=== PATIENT | male | born 1980 | race Caucasian/White ===

== ENCOUNTER 2022-07-12 10:43 | Emergency (ER) | payer MEDICAID, SELFPAY ==
[2022-07-12 10:45] VITALS: BP 150/86; PULSE 99; RESP 18; TEMP 36.7; O2SAT 97; BMI 38.1
--- NOTE | 2022-07-12 11:38 | PC.NURSE ---
PT INITIALLY SENT TO [facility] FOR TESTICULAR US EXAM. UPON ARRIVAL THERE, HE TOLD US TECH THAT HE IN FACT WAS NOT HAVING ANY TESTICULAR PAIN AND THAT HE A RASH ON THE SHAFT OF HIS PENIS. US CALLED THE PROVIDER AND IT WAS DECIDED TO CANCEL THE US.
--- NOTE | 2022-07-12 12:24 | ED.MALEGU ---
HPI - Male Genitourinary General Chief complaint: Urogenital-Male Stated complaint: groin pain Time Seen by Provider: 07/12/22 12:23 Source: patient Mode of arrival: ambulatory Limitations: no limitations History of Present Illness HPI Narrative: Patient is a 41 year old assigned male at with no reported medical history presenting to the emergency department today with penile redness, white discharge, and pain. Patient states that he noticed when he rolls his foreskin on his penis back, there is white discharge, redness, and pain. Patient denies any dizziness, lightheadedness, abdominal pain, nausea, vomiting, fever, chills, blurry vision, double vision, loss of vision, chest pain, difficulty breathing, shortness of breath, back pain, night sweats, pain with urination, increased urinary frequency, increased urinary urgency, blood in his urine or stool, syncope or a near syncopal episode, recent trauma or falls, bowel incontinence, bladder incontinence, bowel retention, bladder retention, or any other complaints at this time. Onset (ago): day(s) (5) Duration: constant Location: penis Severity scale (1-10): 1 Quality: dull Relieving factors: none Exacerbating factors: none Associated symptoms: Reports denies other symptoms Related Data Previous Rx's Medication Instructions Recorded fluconazole 150 mg tablet 150 mg PO Q3D 2 doses #2 tabs 07/12/22 (Diflucan) Allergies Allergy/AdvReac Type Severity Reaction Status Date / Time No Known Allergies Allergy Verified 07/12/22 10:47 Review of Systems Constitutional: Constitutional: Reports no additional constitutional complaints, Denies chills, Denies fever(s) and Denies night sweats Eyes: Eyes: Reports no additional eye complaints, Denies blurry vision, Denies change in vision, Denies diplopia, Denies eye discharge, Denies loss of vision and Denies eye pain ENT: Denies dizziness Cardiovascular: Cardiovascular: Reports no additional cardiovascular complaints, Denies chest pain, Denies lightheadedness, Denies Loss of Consciousness and Denies dyspnea Respiratory: Respiratory: Reports no additional respiratory complaints and Denies dyspnea Gastrointestinal: Gastrointestinal: Reports no additional gastrointestinal complaints, Denies abdominal pain, Denies melena, Denies hematochezia, Denies change in bowel habits and Denies change in stool character Genitourinary: Genitourinary: Reports no additional male genitourinary complaints, Denies hematuria, Denies oliguria, Denies difficulty urinating, Denies dysuria, Denies urinary frequency, Denies urinary hesitancy, Denies urinary incontinence and Denies urinary urgency Comments: penile pain, redness Musculoskeletal: Musculoskeletal: Reports no additional musculoskeletal complaints, Denies numbness and Denies tingling Neurologic: Denies dizziness, Denies loss of vision, Denies numbness and Denies tingling Psychiatric: Psychiatric: Reports no additional psychiatric complaints Endocrine: Endocrine: Reports no additional endocrine complaints Hematologic/Lymphatic: Hematologic/Lymphatic: Reports no additional hematologic/lymphatic complaints Allergic/Immunologic: Allergic/Immunologic: Reports no additional allergic/immunologic complaints [facility] Past Medical History Attestation statement: The following information was validated with the patient. Source: old records reviewed and nursing notes reviewed Social History Social History Advance Directives: No Advance Directives Information Provided: Yes Physical Exam Vital Signs: Vital Signs: Last Vital Signs Temp 98.1 F 07/12/22 10:45 Pulse 99 07/12/22 10:45 Resp 18 07/12/22 10:45 BP 150/86 H 07/12/22 10:45 Pulse Ox 97 07/12/22 10:45 O2 Del Method Room Air 07/12/22 10:45 BMI result Body Mass Index 38.1 Const: General: cooperative, no acute distress, alert and awake Nutritional Appearance: well nourished Orientation/consciousness: patient oriented x3 Limitations: no limitations HEENT: Head: Yes normal to inspection and Yes atraumatic Ears: hearing grossly normal bilaterally and external ears normal General nose exam: Normal external nose present, no nasal discharge noted and no epistaxis Face and sinus: Yes normal facial exam, No abrasion and No laceration Mouth: Normal oral and palatal mucosa present, no drooling and no muffled voice Eyes: General: appearance normal, both eyes and all related structures Periorbital: periorbital findings normal Eyelids: Yes eyelids normal Conjunctivae: conjunctivae normal Pupils: Equal, round and reactive pupils present EOM: EOMs intact bilaterally Neck: Neck: Yes normal visual inspection, Yes full ROM and Yes no lymphadenopathy Chest: Chest palpation & inspection: normal inspection of the chest Resp: Effort & Inspection: normal respiratory effort and able to speak in complete sentences GI: Inspection: Yes normal to inspection : Other: penile erythema and white discharge - consistent with yeast Neuro: General: patient oriented x3 and moves all extremities Cranial nerves: Yes Equal, round and reactive pupils present Cognition (Neuro): normal cognition Motor exam (neuro): 5/5 motor strength present throughout Sensory Exam: Normal double simultaneous stimulation for sensation Coordination: [id number] test normal Extrem: General: Yes normal to inspection, Yes full ROM and Yes capillary refill normal Psych: Appearance: grossly normal Mental Status: mental status grossly normal Affect: normal affect Attitude: cooperative Thought process: Normal thought process present Thought content: Normal thought content present Insight: Good insight present (Psych) Medical Decision Making Medical Decision Making MDM Narrative: Patient is a 41 year old assigned male at with no reported medical history presenting to the emergency department today with penile redness and white discharge. Patient's physical exam showed an obvious penile yeast infection. I explained my physical exam findings to the patient. I answered all questions asked by the patient. I stressed the importance of the patient taking his medication as prescribed. I stressed the importance of the patient following up with his primary care provider. I stressed the importance of the patient returning to the emergency department immediately if his symptoms were to worsen or if he were to develop any dizziness, shortness of breath, difficulty breathing, chest pain, blurry vision, loss of vision, nausea, vomiting, abdominal pain, fever, chills, back pain, or any other complaints. Patient verbalized agreement and understanding with this treatment plan and discharge. Differential Diagnosis Differential Diagnoses: The differential diagnosis associated with the presentation includes yeast infection Discharge Plan Discharge Clinical Impression: Yeast infection Patient Disposition: Home, Self-Care Additional Instructions: Keep the area dry and clean. Follow up with your primary care provider. Return to the emergency department immediately if your symptoms worsen or if you develop any dizziness, shortness of breath, difficulty breathing, chest pain, blurry vision, loss of vision, nausea, vomiting, abdominal pain, fever, chills, back pain, or any other complaints. Prescriptions: New fluconazole [Diflucan] 150 mg tablet 150 mg PO Q3D Qty: 2 0RF Referrals: [facility] [place]] (Call to establish and follow up with a primary care provider. If you already have a primary care provider, please follow up with them.) [facility] [Provider Group] (Call to establish and follow up with a primary care provider. If you already have a primary care provider, please follow up with them.) [facility] [Provider Group] (Call to establish and follow up with a primary care provider. If you already have a primary care provider, please follow up with them.) Stand Alone Forms: Work/School Release Interventions: ED Discharge Assessment Last Done: 07/12/22 12:51 Discharge Date/Time: 07/12/22 12:52 Print Language: Albanian
== END 2022-07-12 12:52 | disposition home or self-care (01) ==
LOC: HO.ED 12:43
PROVIDERS: Emergency Provider Student in an Organized Health Care Education/Training Program
DX: B37.9 Candidiasis, unspecified (principal)
CPT/HCPCS: 99282; 99283

== ENCOUNTER 2022-08-04 13:10 | Emergency (ER) | payer MEDICAID, SELFPAY ==
[2022-08-04 13:23] VITALS: BP 137/91; PULSE 98; RESP 20; TEMP 36.4; O2SAT 96; BMI 37.7
--- NOTE | 2022-08-04 13:23 | ED.MALEGU ---
HPI - Male Genitourinary General Chief complaint: Skin/Abscess/Foreign Body <Celine Anderson NP - Last Filed: 08/05/22 15:13> Stated complaint: yeast infection? <Celine Anderson NP - Last Filed: 08/05/22 15:13> Time Seen by Provider: 08/04/22 13:53 <Celine Anderson NP - Last Filed: 08/05/22 15:13> History of Present Illness HPI Narrative: Patient complains of irritation and rash to tip of penis, foreskin is red and swollen and is difficult to retract There is no testicular pain or swelling there is no discharge there is no fever there is no dysuria <DANIEL Pavon - Last Filed: 08/08/22 13:08> Related Data Home medications: Previous Rx's Medication Instructions Recorded fluconazole 150 mg tablet 150 mg PO Q3D 2 doses #2 tabs 07/12/22 (Diflucan) clotrimazole 1 % topical cream 1 appl topical BID 1 week #15 grams 08/04/22 fluconazole 150 mg tablet 150 mg PO ONCE #1 tab 08/04/22 (Diflucan) mupirocin 2 % topical ointment 1 appl topical BID 5 days #15 grams 08/04/22 <Celine Anderson NP - Last Filed: 08/05/22 15:13> Allergies/Adverse reactions: Allergies Allergy/AdvReac Type Severity Reaction Status Date / Time No Known Allergies Allergy Verified 07/12/22 10:47 <Celine Anderson NP - Last Filed: 08/05/22 15:13> [facility] Social History Social History: Social History Alcohol intake: never Smoked in Last 30 Days: No Use of substances other than those prescribed or required for medical reasons: No Advance Directives: No <Celine Anderson NP - Last Filed: 08/05/22 15:13> Physical Exam Vital Signs: Vital Signs: Last Vital Signs Temp 97.6 F 08/04/22 13:23 Pulse 98 08/04/22 13:23 Resp 20 08/04/22 13:23 BP 137/91 H 08/04/22 13:23 Pulse Ox 96 08/04/22 13:23 O2 Del Method Room Air 08/04/22 13:23 BMI result Body Mass Index 37.7 <Celine Anderson NP - Last Filed: 08/05/22 15:13> Vital Signs: Last Vital Signs Temp 97.6 F 08/04/22 13:23 Pulse 98 08/04/22 13:23 Resp 20 08/04/22 13:23 BP 137/91 H 08/04/22 13:23 Pulse Ox 96 08/04/22 13:23 O2 Del Method Room Air 08/04/22 13:23 BMI result Body Mass Index 37.7 <DANIEL Pavon - Last Filed: 08/08/22 13:08> General appearance comfortable cooperative no distress Head is normocephalic atraumatic Neck is supple Respiratory no distress Abdomen soft nontender The penis the foreskin is swollen and red but can be retracted, there is a splotchy red rash on tip of penis, with some whitish material There is no testicular swelling or tenderness, there are no other lesions or sores there is no discharge <DANIEL Pavon - Last Filed: 08/08/22 13:08> Course Course Course Narrative: This is a rapid medical exam. Deferred additional HPI, ROS, PE to primary provider. 41 yo male with no known medical problems here with a swollen, painful penis with inability to retract his foreskin x 2 days. Able to urinate. Unable to visualize in triage. VSS <Celine Anderson NP - Last Filed: 08/05/22 15:13> This is a rapid medical exam. Deferred additional HPI, ROS, PE to primary provider. 41 yo male with no known medical problems here with a swollen, painful penis with inability to retract his foreskin x 2 days. Able to urinate. Unable to visualize in triage. VSS Patient is treated for balanitis and advised to see urologist for discussion of possible circumcision and is treated with anti fungal in mupirocin cream No sign of any systemic illness, with foreskin was easily retracted and placed back and well-appearing patient is discharged Point of care was done because of the fungal infection in was 215, patient is advised to follow with primary doctor for evaluation for possible development of diabetes and he said he would do so <DANIEL Pavon - Last Filed: 08/08/22 13:08> Medications Administered Discontinued Medications Generic Name Dose Route Start Last Admin Trade Name Freq PRN Reason Stop Dose Admin Fluconazole 150 mg 08/04/22 15:03 08/04/22 15:28 Fluconazole 150 Mg Tablet PO 08/04/22 15:04 150 mg ONCE ONE Administration <Celine Anderson NP - Last Filed: 08/05/22 15:13> Medications Administered Discontinued Medications Generic Name Dose Route Start Last Admin Trade Name Freq PRN Reason Stop Dose Admin Fluconazole 150 mg 08/04/22 15:03 08/04/22 15:28 Fluconazole 150 Mg Tablet PO 08/04/22 15:04 150 mg ONCE ONE Administration <DANIEL Pavon - Last Filed: 08/08/22 13:08> Medical Decision Making Lab Data Labs: Lab Results 08/04/22 Range/Units 15:15 POC Glucose 215 H (60-115) mg/dL <Celine Anderson NP - Last Filed: 08/05/22 15:13> Lab Results 08/04/22 Range/Units 15:15 POC Glucose 215 H (60-115) mg/dL <DANIEL Pavon - Last Filed: 08/08/22 13:08> Discharge Plan Discharge Clinical Impression: Balanitis <Celine Anderson NP - Last Filed: 08/05/22 15:13> Patient Disposition: Home, Self-Care <Celine Anderson NP - Last Filed: 08/05/22 15:13> Additional Instructions: We are treating probable fungal infection with Diflucan tablets and clotrimazole antifungal cream Use mupirocin ointment as well for 5 days, antibiotic ointment Your glucose was mildly elevated at 215, so best plan is to follow with primary care doctor for evaluation for possible new development of diabetes Return to the ER any time for any worse condition or any concerns As this is happened twice, you may need a circumcision so follow with urologist <Celine Anderson NP - Last Filed: 08/05/22 15:13> Prescriptions: New fluconazole [Diflucan] 150 mg tablet 150 mg PO ONCE Qty: 1 0RF mupirocin 2 % ointment 1 appl topical BID 5 Days Qty: 15 0RF clotrimazole 1 % cream 1 appl topical BID 7 Days Qty: 15 0RF No Action fluconazole [Diflucan] 150 mg tablet 150 mg PO Q3D Qty: 2 0RF <Celine Anderson NP - Last Filed: 08/05/22 15:13> Ref[facility]: [facility] <Celine Anderson NP - Last Filed: 08/05/22 15:13> Interventions: ED Discharge Assessment Last Done: 08/04/22 15:49 <Celine Anderson NP - Last Filed: 08/05/22 15:13> Discharge Date/Time: 08/04/22 15:52 <Celine Anderson NP - Last Filed: 08/05/22 15:13>
[2022-08-04 15:20] LABS: Glucose, Whole Blood 215 mg/dL (60-115)
[2022-08-04] MEDS: Fluconazole 150 MG TABLET PO (15:28)
== END 2022-08-04 15:52 | disposition home or self-care (01) ==
PROVIDERS: Emergency Provider Emergency Medicine Emergency Medical Services
DX: N48.1 Balanitis (principal); Z79.899 Other long term (current) drug therapy
CPT/HCPCS: 82947; 99283

== ENCOUNTER 2022-11-03 08:48 | Outpatient (AMB) | payer OTHER, SELFPAY ==
--- NOTE | 2022-11-03 08:48 | A.OFFPC_ITS ---
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 Narcotics Required: No Accompanied by: Self / Same As Patient Allergies No Known Allergies Allergy (Verified 11/03/22 08:59) Medication List - Last Reconciled 11/03/22 by DONNA Whitehead No Known Home Meds Tobacco use date assessed: 11/03/22 Dental Screening Dental Screen Date: 11/03/22 Did you have a dental visit in the last 12 months?: No Did you have a dental problem in the last 6 months where you did not have access to dental care?: No Was dental information given to patient?: No HPI SPECIAL PROCEDURES TECH / Req Physical HPI Details Patient is a 41-year-old male who presents today to [facility] care. Previous PCP [address] Blackman in [place]. medical history significant for autism-diagnosed at age 11, anxiety, depression, BONNY-on CPAP, [id number] migraines in 1 month-stable with [id number] Excedrin. Patient also reports decreased hearing in his left ear, reports history of bilateral ear tubes in childhood. In addition, patient reports that he was diagnosed with ADHD in the past and he was on Ritalin in his teens age. Patient reports that he has hard time keeping 1 job, currently he works at [employer] over 1 year now. He lives by himself. He reports slightly increased anxiety and depression due to his uncle having medical issues, his uncle takes care of him financially. Patient reports that he has crisis hotline phone number from his work. He denies shortness of breath or chest pain. [facility] Surgical History (Updated 11/03/22 @ 09:17 by DONNA Whitehead) History of placement of ear tubes Family History Mother Diabetes Father Colon cancer Maternal Uncle Heart attack Social History Housing: Apartment Alcohol intake: never Patient Tobacco Use Status: Never used Tobacco e-Cigarette/Vaping Use: Never Used Second Hand Smoke Exposure: No service: Yes Current occupational status: employed Current occupational exposures/hazards: No Cognitive needs: No Hearing needs: No Vision needs: No Questionnaire PHQ-9 Over the last 2 weeks, how often have you been bothered by any of the following problems? 1. Little interest or pleasure in doing things: several days 2. Feeling down, depressed, or hopeless: several days 3. Trouble falling or staying asleep, or sleeping too much: several days 4. Feeling tired or having little energy: more than half the days 5. Poor appetite or overeating: several days 6. Feeling bad about yourself - or that you are a failure or have let yourself or your family down: not at all 7. Trouble concentrating on things, such as reading the newspaper or watching television: more than half the days 8. Moving or speaking so slowly that other people could have noticed. Or the opposite - being so fidgety or restless that you have been moving around a lot more than usual: several days 9. Thoughts that you would be better off or of hurting yourself in some way: not at all Total score: 9 Depression Screening Interpretation: Negative 97016 - PHQ-9 Billing: Yes Source: Developed by Drs. Faustino Glez, Selma Brown, Thomas Null and colleagues, with an educational maricruz from [employer]. Thrive Questionnaire Date Thrive assessed: 11/03/22 I am a: Patient What is your living situation today?: I have a steady place to live Within the past 12 months, did the food you bought not last and you didn't have the money to get more?: Never true Within the past 12 months, did you worry whether your food would run out before you got money to buy more?: Never true Do you have trouble paying for medicines?: No Do you have trouble getting transportation to medical appointments?: No Do you have trouble paying your heating and electricity bill?: No Do you have trouble taking care of your child, family member or friend?: No Do you have trouble with day-to-day activities such as bathing, preparing meals, shopping, managing finances, etc.?: No Are you currently unemployed and looking for a job?: No Are you interested in more education?: No Please select the resources that you would like help with: None Currently or been in a relationship where the following occur: no concerns reported AUDIT C Alcohol Use Questionnaire (AUDIT-C) 1. How often do you have a drink containing alcohol?: Never Total Score: 0 Score Reviewed/Action Taken: No ABBEY-7 AMB Questionnaire ABBEY-7 Date ABBEY - 7 assessed: 11/03/22 Feeling nervous, anxious, or on edge: 1 = Several days Not being able to stop or control worryin = Several days Worrying too much about different things: 1 = Several days Trouble relaxin = Several days Being so restless that it is hard to sit still: 1 = Several days Becoming easily annoyed or irritable: 1 = Several days Feeling afraid as if something awful might happen: 2 = More than half the days Total ABBEY-7 score (0-4 normal; 5-9 mild; 10-14 moderate; 15-21 severe): 8 Source: Developed by Drs. Faustino Glez, Selma Brown, Thomas Null and colleagues, with an educational maricruz from [employer]. ABBEY-7 Assessment Billing ABBEY-7 Assessment Tool: ABBEY-7 Assessment 57026 Review of Systems Const Denies body aches, Denies chills, Denies fever(s) and Denies headache(s) Eyes Denies change in vision ENT Denies dizziness, Denies otalgia, Denies headache(s), Denies nasal discharge, Denies sinus pain and Denies sore throat Card Denies chest pain, Denies edema, Denies lightheadedness and Denies dyspnea Resp Denies cough and Denies dyspnea GI Denies constipation, Denies diarrhea, Denies nausea and Denies vomiting Denies dysuria Musc Denies myalgias Skin/Breast Denies rash Neuro Denies dizziness and Denies headache(s) Physical exam (Primary Care) Vital Signs: Last Vital Signs Pulse 100 11/03/22 08:49 BP 172/110 H 11/03/22 08:49 Pulse Ox 96 11/03/22 08:49 Oxygen Delivery Method Room Air 11/03/22 08:49 BMI result Body Mass Index 37.6 Tobacco/Smoking Status: Tobacco use Status Tobacco use date assessed 11/03/22 11/03/22 08:59 Patient Tobacco Use Status Never used Tobacco 11/03/22 08:59 e-Cigarette/Vaping Use Never Used 11/03/22 08:59 PHQ-9: PHQ-9 Score PHQ-9: Total score 9 11/03/22 08:59 Depression Screening Interpretation: Negative Thrive Assessment: Date of Thrive Assessment Date Thrive assessed 11/03/22 11/03/22 08:59 Currently or been in a relationship where the following occur: no concerns reported Const General: cooperative and no acute distress Orientation/consciousness: patient oriented x3 HENMT Head: Yes normocephalic and Yes atraumatic Ears: TM's normal bilaterally Face and sinus: Yes sinuses nontender Mouth: oropharynx normal and moist mucous membranes Throat: Yes posterior oropharynx normal Eyes General: appearance normal, both eyes and all related structures Pupils: Equal, round and reactive pupils present EOM: EOMs intact bilaterally Neck Neck: Yes normal visual inspection, Yes full ROM and Yes no lymphadenopathy Thyroid: Thyroid normal Resp Effort & Inspection: normal respiratory effort and able to speak in complete sentences Auscultation: clear to auscultation bilaterally, no crackles, no rales, no rhonchi and no wheezes Cardio Rate: regular rate Rhythm: regular rhythm Heart sounds: S1 normal heart sound present, S2 normal heart sound present and no murmurs GI Palpation (GI): Soft to palpation, not firm, nontender, no guarding, not rigid and no hepatosplenomegaly Auscultation: normal bowel sounds General: No CVA tenderness Back/Spine/Pelvis Back: No CVA tenderness Skin General skin exam: no rashes or lesions noted Neuro General: patient oriented x3 Cranial nerves: Yes Equal, round and reactive pupils present Gait exam (Neuro): Normal gait present Extrem General: Yes full ROM and No edema Assessment and Plan Assessment & Plan (1) Decreased hearing of left ear: Code(s): H91.92 - Unspecified hearing loss, left ear Plan: Will refer for hearing test (2) Migraines: Code(s): G43.909 - Migraine, unspecified, not intractable, without status migrainosus Plan: Stable with [id number] Excedrin Patient reports migraine headache 3-4 times per month (3) Attention deficit hyperactivity disorder (ADHD) evaluation: Code(s): Z13.39 - Encounter for screening examination for other mental health and behavioral disorders Plan: Will refer to Psychiatry for ADHD evaluation (4) Screening for diabetes mellitus: Code(s): Z13.1 - Encounter for screening for diabetes mellitus (5) Screening for hyperlipidemia: Code(s): Z13.220 - Encounter for screening for lipoid disorders (6) Screening for hypothyroidism: Code(s): Z13.29 - Encounter for screening for other suspected endocrine disorder (7) Depression: Code(s): F32.A - Depression, unspecified Qualifiers: Depression Type: other depression Qualified Code(s): F32.89 - Other specified depressive episodes Plan: Will refer to Psychiatry and counseling Patient would like to hold off on pharmacological intervention at this time Denies SI or HI Has crisis phone number (8) Anxiety: Code(s): F41.9 - Anxiety disorder, unspecified Plan: Same as above (9) Autism: Comment: diagnosed at age 11 Code(s): F84.0 - Autistic disorder Plan: Same as above (10) Encounter to establish care: Code(s): Z76.89 - Persons encountering health services in other specified circumstances Plan Follow-up in 2 months for PE and labs Orders: Orders Vitamin B12 and Folate Today Z76.89 - Persons encountering health services in other specified circumstances Comprehensive [place]. Panel Fast Today Z13.1 - Encounter for screening for diabetes mellitus Lipid Panel Today Z13.220 - Encounter for screening for lipoid disorders TSH reflex Free T4 Today Z13.29 - Encounter for screening for other suspected endocrine disorder Vitamin D 25-OH Total Today Z76.89 - Persons encountering health services in other specified circumstances Complete Blood Count Auto Diff Today Z76.89 - Persons encountering health services in other specified circumstances Referrals Counseling Referral F32.A - Depression, unspecified, F41.9 - Anxiety disorder, unspecified, F84.0 - Autistic disorder Psychiatry Referral F32.A - Depression, unspecified, F41.9 - Anxiety disorder, unspecified, F84.0 - Autistic disorder, Z13.39 - Encounter for screening examination for other mental health and behavioral disorders Audiology Referral H91.92 - Unspecified hearing loss, left ear Coding Level of Care Code New Pt Level 3 (57458) Diagnoses Decreased hearing of left ear H91.92 Migraines G43.909 Attention deficit hyperactivity disorder (ADHD) evaluation Z13.39 Screening for diabetes mellitus Z13.1 Screening for hyperlipidemia Z13.220 Screening for hypothyroidism Z13.29 Depression F32.89 Depression Type: other depression Anxiety F41.9 Autism F84.0 Encounter to establish care Z76.89 Additional Codes ABBEY-7 Assessment Billing - ABBEY-7 Assessment Tool: ABBEY-7 Assessment 60972 ([id number])
[2022-11-03 08:49] VITALS: BP 172/110; PULSE 100; O2SAT 96; BMI 37.6
[2022-11-03 09:16] VITALS: BP 130/86
== END 2022-11-03 09:27 | disposition home or self-care (01) ==
PROVIDERS: PCP Nurse Practitioner Family; Visit Provider Nurse Practitioner Family
DX: H91.92 Unspecified hearing loss, left ear (principal); G43.909 Migraine, unspecified, not intractable, without status migrainosus; F41.9 Anxiety disorder, unspecified; F84.0 Autistic disorder; Z13.39 Encounter for screening examination for other mental health and behavioral disorders; Z13.1 Encounter for screening for diabetes mellitus; Z13.220 Encounter for screening for lipoid disorders; Z13.29 Encounter for screening for other suspected endocrine disorder; F32.89 Other specified depressive episodes
CPT/HCPCS: 99203

== ENCOUNTER 2023-01-04 10:18 | Outpatient (REF) | payer OTHER, SELFPAY ==
[2023-01-04 10:31] LABS: MANUAL DIFF FLAG NO
[2023-01-04 10:40] LABS: Basophils Absolute Auto 0.1 X10*3/uL (0.0-0.2); Basophils Percent Auto 1.2 % (0-2); Eosinophils Absolute Auto 0.2 X10*3/uL (0.0-0.4); Hematocrit 44.1 % (42.0-52.0); Hemoglobin 14.3 g/dl (14.0-18.0); Imm Gran Abs Auto 0.08 X10*3/uL (0.00-0.03); Imm Gran Pct Auto 0.9 % (0.0-0.4); Lymphocytes Absolute Auto 2.9 X10*3/uL (1.2-4.9); Lymphocytes Percent Auto 30.9 % (20-40); Mean Corpuscular HGB Conc 32.4 g/dl (31.0-36.0); Mean Corpuscular Hemoglobin 26.6 pg (27.0-33.0); Mean Corpuscular Volume 82.1 fL (80.0-98.0); Mean Platelet Volume 10.6 fL (9.4-12.4); Monocytes Absolute Auto 0.6 X10*3/uL (0.1-1.2); Monocytes Percent Auto 6.8 % (2-11); Neutrophils Absolute Auto 5.4 x10*3/uL (2.0-8.3); Neutrophils Percent Auto 58.2 % (45-73); Platelet Count 237 X10*3/uL (160-400); Red Blood Count 5.37 X10*6/uL (4.60-5.80); Red Cell Distribution Width 13.4 % (11.0-16.0); White Blood Count 9.3 X10*3/uL (4.8-10.8)
[2023-01-04 12:02] LABS: Alanine Aminotransferase 37 U/L (0-40); Albumin Level 3.7 g/dL (3.5-5.0); Alkaline Phosphatase 73 U/L (39-117); Anion Gap 12 (12-20); Aspartate Amino Transferase 22 U/L (5-37); Bilirubin Total 0.2 mg/dL (0.0-1.0); Blood Urea Nitrogen 8 mg/dL (9-16); Calcium 9.2 mg/dL (8.4-10.2); Carbon Dioxide 27 mmol/L (22-29); Chloride 103 mmol/L (96-108); Cholesterol 231 mg/dL (<200); Estimated Glomerular Filt Rate > 60; Glucose Fasting 248 mg/dL (60-99); HDL Cholesterol 38 mg/dL (>40); LDL Cholesterol Calculated 128 mg/dL (<100); Sodium 138 mmol/L (135-145); Total Protein 7.3 g/dL (6.5-8.0); Triglycerides 326 mg/dL (<150)
[2023-01-04 12:17] LABS: TSH reflex Free T4 1.16 uIU/mL (0.32-4.0); Vitamin D 25-OH Total 13.6 ng/mL (>30)
[2023-01-04 12:21] LABS: Folate 11.2 ng/mL (> or = 4.0); Vitamin B12 1133 pg/mL (200-900)
== END 2023-01-04 10:19 | disposition home or self-care (01) ==
LOC: HO.LAB 10:18
PROVIDERS: PCP Nurse Practitioner Family; Visit Provider Nurse Practitioner Family
DX: Z76.89 Persons encountering health services in other specified circumstances (principal); Z13.29 Encounter for screening for other suspected endocrine disorder; Z13.220 Encounter for screening for lipoid disorders; Z13.1 Encounter for screening for diabetes mellitus
CPT/HCPCS: 36415; 80053; 80061; 82306; 82607; 82746; 84443; 85025

== ENCOUNTER 2023-01-05 10:27 | Outpatient (AMB) | payer OTHER, SELFPAY ==
[2023-01-05 10:33] VITALS: BP 126/82; PULSE 92; O2SAT 97; BMI 37.2
--- NOTE | 2023-01-05 10:33 | MHC.PC.OV ---
Vital Signs 01/05/23 10:33 Height 6 ft 3 in Weight 298 lb BMI 37.2 BP 126/82 Blood Pressure Location Lt brachial Position Sitting Pulse 92 Pulse Source Pulse Oximeter Temp Source Skin Pulse Oximetry (%) 97 Oxygen Delivery Method Room Air Intake Visit Reasons: Annual exam Intake Note: Patient is here today for a physical. Membership Administrator Required: No Allergies No Known Allergies Allergy (Verified 01/05/23 10:50) Medication List - Last Reconciled 01/05/23 by DONNA Whitehead clotrimazole 1% (Antifungal (clotrimazole)) 1 appl topical BID Tobacco use date assessed: 01/05/23 Dental Screening Dental Screen Date: 01/05/23 Did you have a dental visit in the last 12 months?: No Did you have a dental problem in the last 6 months where you did not have access to dental care?: No HPI Annual exam HPI Details Patient is a 42-year-old male who presents today for physical exam. Medical history significant for autism-diagnosed at age 11, anxiety, depression, BONNY-on CPAP, [id number]-[id number] migraines monthly-stable with [id number]-xlhygsd Excedrin. Today we discussed patient's need for tetanus vaccine. Recent blood work results from yesterday were reviewed with the patient, fasting glucose was elevated, A1c 12.1 in the office today. In addition, patient reports fluid coming out from his left ear for the past 4 weeks, he denies pain there. In addition, patient reports penile yeast infection for the past 2 months, he reports using clotrimazole cream with minimal improvement, he also reports that he is unable to retract foreskin for the past some time-and would like referral to see Urology. Patient denies shortness of breath or chest pain. Patient will call for dental exam. [facility] Medical History Encounter to establish care Surgical History History of placement of ear tubes Family History Mother Diabetes Father Colon cancer Maternal Uncle Heart attack Social History Housing: Apartment Alcohol intake: never Patient Tobacco Use Status: Never used Tobacco e-Cigarette/Vaping Use: Never Used Second Hand Smoke Exposure: No service: Yes Current occupational status: employed Current occupational exposures/hazards: No Cognitive needs: No Hearing needs: No Vision needs: No Questionnaire PHQ-9 Over the last 2 weeks, how often have you been bothered by any of the following problems? 1. Little interest or pleasure in doing things: several days 2. Feeling down, depressed, or hopeless: several days 3. Trouble falling or staying asleep, or sleeping too much: several days 4. Feeling tired or having little energy: more than half the days 5. Poor appetite or overeating: several days 6. Feeling bad about yourself - or that you are a failure or have let yourself or your family down: not at all 7. Trouble concentrating on things, such as reading the newspaper or watching television: more than half the days 8. Moving or speaking so slowly that other people could have noticed. Or the opposite - being so fidgety or restless that you have been moving around a lot more than usual: several days 9. Thoughts that you would be better off or of hurting yourself in some way: not at all Total score: 9 Depression Screening Interpretation: Negative 41671 - PHQ-9 Billing: Yes Source: Developed by Drs. Faustino Glez, Selma Brown, Thomas Null and colleagues, with an educational maricruz from [employer]. Thrive Questionnaire Date Thrive assessed: 11/03/22 AUDIT C Alcohol Use Questionnaire (AUDIT-C) 1. How often do you have a drink containing alcohol?: Never Total Score: 0 Score Reviewed/Action Taken: No ABBEY-7 AMB Questionnaire ABBEY-7 Date ABBEY - 7 assessed: 01/05/23 Feeling nervous, anxious, or on edge: 1 = Several days Not being able to stop or control worryin = Several days Worrying too much about different things: 1 = Several days Trouble relaxin = Several days Being so restless that it is hard to sit still: 1 = Several days Becoming easily annoyed or irritable: 1 = Several days Feeling afraid as if something awful might happen: 2 = More than half the days Total ABBEY-7 score (0-4 normal; 5-9 mild; 10-14 moderate; 15-21 severe): 8 Source: Developed by Drs. Faustino Glez, Selma Brown, Thomas Null and colleagues, with an educational maricruz from [employer]. ABBEY-7 Assessment Billing ABBEY-7 Assessment Tool: ABBEY-7 Assessment 81593 Review of Systems Const Denies body aches, Denies chills, Denies fever(s) and Denies headache(s) Eyes Denies change in vision ENT Reports as per HPI, Denies dizziness, Denies otalgia, Denies headache(s), Denies nasal discharge, Denies sinus pain and Denies sore throat Card Denies chest pain, Denies edema, Denies lightheadedness and Denies dyspnea Resp Denies cough and Denies dyspnea GI Denies constipation, Denies diarrhea, Denies nausea and Denies vomiting Reports as per HPI and Denies dysuria Musc Denies myalgias Skin/Breast Reports as per HPI and Denies rash Neuro Denies dizziness and Denies headache(s) Physical exam (Primary Care) Vital Signs: Last Vital Signs Pulse 92 01/05/23 10:33 BP 126/82 01/05/23 10:33 Pulse Ox 97 01/05/23 10:33 Oxygen Delivery Method Room Air 01/05/23 10:33 BMI result Body Mass Index 37.2 Tobacco/Smoking Status: Tobacco use Status Tobacco use date assessed 01/05/23 01/05/23 10:34 Patient Tobacco Use Status Never used Tobacco 01/05/23 10:34 e-Cigarette/Vaping Use Never Used 01/05/23 10:34 PHQ-9: PHQ-9 Score PHQ-9: Total score 9 01/05/23 11:14 Depression Screening Interpretation: Negative Thrive Assessment: Date of Thrive Assessment Date Thrive assessed 11/03/22 01/05/23 10:34 Const General: cooperative and no acute distress Orientation/consciousness: patient oriented x3 HENMT Head: Yes normocephalic and Yes atraumatic Ears: TM's normal bilaterally Face and sinus: Yes sinuses nontender Mouth: oropharynx normal and moist mucous membranes Throat: Yes posterior oropharynx normal Eyes General: appearance normal, both eyes and all related structures Pupils: Equal, round and reactive pupils present EOM: EOMs intact bilaterally Neck Other: Left ear canal with mild erythema and swelling, no discharge noted Neck: Yes normal visual inspection, Yes full ROM and Yes no lymphadenopathy Thyroid: Thyroid normal Resp Effort & Inspection: normal respiratory effort and able to speak in complete sentences Auscultation: clear to auscultation bilaterally, no crackles, no rales, no rhonchi and no wheezes Cardio Rate: regular rate Rhythm: regular rhythm Heart sounds: S1 normal heart sound present, S2 normal heart sound present and no murmurs GI Palpation (GI): Soft to palpation, not firm, nontender, no guarding, not rigid and no hepatosplenomegaly Auscultation: normal bowel sounds Other: Shelli MOLINA as a 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 torch Foreskin with moderate erythema and fissures noted, no discharge, unable to completely retract foreskin General: No CVA tenderness Back/Spine/Pelvis Back: No CVA tenderness Skin General skin exam: no rashes or lesions noted Neuro General: patient oriented x3 Cranial nerves: Yes Equal, round and reactive pupils present Gait exam (Neuro): Normal gait present Extrem General: Yes full ROM and No edema Results AMB Hemoglobin A1c AMB Hemoglobin A1c 12.1 % Last Edit by MARCELINO lOea on 01/05/23 11:15 Immunizations Boostrix Tdap 2.5 Lf unit-8 mcg-5 Lf/0.5 mL intramuscular syringe Performing Provider: DONNA Whitehead [facility] Administered by: MARCELINO Olea on 01/05/23 11:00 Dose Route Admin Location Dispensed Lot Number Expiration Date NDC Onsite Health Coach 0.5 mL IM Left Deltoid 0.5 mL [id number] 01/11/25 [id number] GANTEC VIS Given Date VIS Provided VIS Publication Date 01/05/23 Single Vaccine 20 Eligibility Eligibility Date Funding Source Not [facility] [facility] Eligible 01/05/23 Private Results Reviewed Results Reviewed: Laboratory Last Values Hgb A1c (Clinic) 12.1 % (4.0-6.0) H 01/05/23 10:59 Assessment and Plan Assessment & Plan (1) Balanitis: Code(s): N48.1 - Balanitis Plan: Foreskin with moderate erythema and fissures noted, no discharge, unable to completely retract foreskin Patient is to continue clotrimazole cream b.i.d. (2) Decreased hearing of left ear: Code(s): H91.92 - Unspecified hearing loss, left ear Plan: Will refer for hearing test - will follow-up on this referral (3) Migraines: Code(s): G43.909 - Migraine, unspecified, not intractable, without status migrainosus Plan: Stable with tiuu-hdk-welggim Excedrin Patient reports migraine headache 3-4 times per month (4) Attention deficit hyperactivity disorder (ADHD) evaluation: Code(s): Z13.39 - Encounter for screening examination for other mental health and behavioral disorders Plan: Will refer to Psychiatry for ADHD evaluation - will follow-up on referral (5) Depression: Code(s): F32.A - Depression, unspecified Qualifiers: Depression Type: other depression Qualified Code(s): F32.89 - Other specified depressive episodes Plan: Will refer to Psychiatry and counseling - will follow-up on this Patient would like to hold off on pharmacological intervention at this time Denies SI or HI Has crisis phone number (6) Anxiety: Code(s): F41.9 - Anxiety disorder, unspecified Plan: Same as above (7) Hyperlipidemia: Code(s): E78.5 - Hyperlipidemia, unspecified Plan: LDL 128, triglycerides 326 Start pravastatin 10 mg daily-educated about possible adverse reactions and when to notify provider Low-cholesterol diet and weight loss (8) Diabetes mellitus: Code(s): E11.9 - Type 2 diabetes mellitus without complications Plan: A1c 12.1 today, goal less than 7 Ophthalmology referral for diabetic eye exam Patient is to check blood sugars daily at home Low-carbohydrate diet and weight loss Start metformin 750 mg b.i.d. - possible adverse reactions reviewed with the patient and when to notify provider Endocrinology and Diabetes Education referrals Patient was seen by nurse educator in the office today (9) Excessive foreskin: Code(s): N47.8 - Other disorders of prepuce Plan: Foreskin with moderate erythema and fissures noted, no discharge, unable to completely retract foreskin Urology referral for an evaluation and treatment (10) Otitis externa of left ear: Code(s): H60.92 - Unspecified otitis externa, left ear Plan: Start ear drops to left ear q.i.d. for 7 days - notify office if no improvement after finishing treatment (11) Low vitamin D level: Code(s): R79.89 - Other specified abnormal findings of blood chemistry Plan: Vitamin D level 13.6 Start vitamin-D 50 mcg daily (12) Adult general medical exam: Code(s): Z00.00 - Encounter for general adult medical examination without abnormal findings Plan: Repeat in 1 year (13) Obesity (BMI 30-39.9): Code(s): E66.9 - Obesity, unspecified Plan: Healthy food choices and exercise as tolerated Plan Follow-up in 3 months or sooner as needed Patient is to call in 2 weeks with his blood sugar readings Orders: Orders TDaP Immunization Today Z23 - Encounter for immunization Microalbumin, Random (w Creat) Today E11.9 - Type 2 diabetes mellitus without complications AMB Hemoglobin A1c Today Z13.9 - Encounter for screening, unspecified Vitamin D 25-OH Total 3 Months R79.89 - Other specified abnormal findings of blood chemistry Lipid Panel 3 Months E78.5 - Hyperlipidemia, unspecified Comprehensive [place]. Panel Fast 3 Months E11.9 - Type 2 diabetes mellitus without complications Hemoglobin A1c 3 Months E11.9 - Type 2 diabetes mellitus without complications Referrals Endocrinology Referral E11.9 - Type 2 diabetes mellitus without complications Ophthalmology Referral E11.9 - Type 2 diabetes mellitus without complications, Z01.00 - Encounter for examination of eyes and vision without abnormal findings Urology Referral N47.8 - Other disorders of prepuce, N48.1 - Balanitis Diabetes Education Referral E11.9 - Type 2 diabetes mellitus without complications Medications: New cholecalciferol (vitamin D3) 50 mcg PO DAILY 90 tabs 0RF R79.89 - Other specified abnormal findings of blood chemistry metformin ER 750 mg PO BID 60 tabs 2RF E11.9 - Type 2 diabetes mellitus without complications lancets (FreeStyle Lancets) test daily 100 ea 2RF E11.9 - Type 2 diabetes mellitus without complications blood sugar diagnostic (FreeStyle Lite Strips) test daily 100 ea 2RF E11.9 - Type 2 diabetes mellitus without complications hydrocortisone-acetic acid 1-2 % 4 drps otic (ear) left QID 7 days 10 mL 0RF H60.92 - Unspecified otitis externa, left ear pravastatin 10 mg PO DAILY 30 tabs 2RF E78.5 - Hyperlipidemia, unspecified blood-glucose meter (FreeStyle Lite Meter kit) test daily 1 ea 0RF E11.9 - Type 2 diabetes mellitus without complications Coding Level of Care Code Est Pt Prev Care 40-64y(14358) Diagnoses Balanitis N48.1 Decreased hearing of left ear H91.92 Migraines G43.909 Attention deficit hyperactivity disorder (ADHD) evaluation Z13.39 Other depression F32.89 Depression Type: other depression Anxiety F41.9 Hyperlipidemia E78.5 Diabetes mellitus E11.9 Excessive foreskin N47.8 Otitis externa of left ear H60.92 Low vitamin D level R79.89 Adult general medical exam Z00.00 Obesity (BMI 30-39.9) E66.9 Additional Codes ABBEY-7 Assessment Billing - ABBEY-7 Assessment Tool: ABBEY-7 Assessment 59333 ([id number])
== END 2023-01-05 11:42 | disposition home or self-care (01) ==
PROVIDERS: PCP Nurse Practitioner Family; Visit Provider Nurse Practitioner Family
DX: Z23 Encounter for immunization (principal); E11.9 Type 2 diabetes mellitus without complications
CPT/HCPCS: 83036; 90471; 90715; 99396

== ENCOUNTER 2023-02-02 10:10 | Outpatient (AMB) | payer OTHER, SELFPAY ==
[2023-02-02 10:14] VITALS: BMI 37.0
--- NOTE | 2023-02-02 10:14 | A.OFFVIS_ITS ---
Intake VS Expanded 02/02/23 10:14 02/07/23 19:47 Height 6 ft 3 in 6 ft 3 in Weight 295 lb 13.765 oz 296 lb BMI 37.0 37.0 Intake Visit Reasons: Type 2 diabetes, appt confirmed Allergies No Known Allergies Allergy (Verified 01/05/23 10:50) HPI Nutrition Presentation Details Pt presents for MNT for recent dx of T2DM . Pt was referred by RANDY Wilkinson from [facility] [place] typical meal intake B: toast eggs or with madrigal and sausage, coffee with cream flavored and sugar ( 1 tbsp) L: 12-2 pm: soup ( chicken noodle ) or sandwich (turkey/ham salami) occ celery or carrots, raspberry ice tea D:5-7 pm : chicken fried , batter , macaroni and salad , raspberry ice tea snacks : chips, pretzel Tajik onion dip etoh: denies smoking: denies physical act: walk 1/2-1 mile daily (1/2 hours) , bowling ( 2 times/wk) food frequency fruits: 0-1/d vegetables : 3 serving/d protein >10 oz/d dairy: 2 serving/d starches> 20 serving beverages: water, tea , coffee : 36 oz/d BVM-Jrwraov-Fz.Jeor Equation Height 6 ft 3 in Weight 296 lb Resting Metabolic Rate 2320.44 Calculated Activity Level Sedentary Calories Needed to Maintain Weight 2784.53 Diagnosis Nutrition problem #1 food nutri know defi As related to (etiology) #1 diagnosis As evidenced by (sign/symptom) #1 knowledge deficit of diet Monitoring/Goals Nutrition problem monitoring level of knowledge/skill, total PRO intake and total CHO intake Nutrition goal/outcome list 3 CHO foods Outcome progress verbalized understanding Learning/Education Readiness to learn good Stages of change contemplation Educational materials provided Yes (meal planning ) Most Recent Diabetes Results: Cholesterol 231 mg/dL (<200) H 01/04/23 HDL Cholesterol 38 mg/dL (>40) L 01/04/23 Triglycerides 326 mg/dL (<150) H 01/04/23 Creatinine 0.76 mg/dL (0.5-1.4) 01/04/23 Blood Urea Nitrogen 8 mg/dL (9-16) L 01/04/23 Sodium 138 mmol/L (135-145) 01/04/23 Potassium 4.0 mmol/L (3.3-5.1) 01/04/23 Chloride 103 mmol/L (96-108) 01/04/23 Carbon Dioxide 27 mmol/L (22-29) 01/04/23 Calcium 9.2 mg/dL (8.4-10.2) 01/04/23 AST 22 U/L (5-37) 01/04/23 ALT 37 U/L (0-40) 01/04/23 Total Protein 7.3 g/dL (6.5-8.0) 01/04/23 Albumin 3.7 g/dL (3.5-5.0) 01/04/23 [facility] Medical History Encounter to establish care Surgical History History of placement of ear tubes Family History Mother Diabetes Father Colon cancer Maternal Uncle Heart attack Social History Housing: Apartment Alcohol intake: never Patient Tobacco Use Status: Never used Tobacco e-Cigarette/Vaping Use: Never Used Second Hand Smoke Exposure: No service: Yes Current occupational status: employed Current occupational exposures/hazards: No Cognitive needs: No Hearing needs: No Vision needs: No Assessment & Plan Assessment & Plan (1) Diabetes mellitus: Code(s): E11.9 - Type 2 diabetes mellitus without complications Plan: wt: 134 kg Est kcal needs as per MSJ: 2800 (40% carb, 30% protein/fat) Est fluid needs as per 30 ml/d: 4000 Est prot per day as per 1 g/kg bw: 134 Recommend fiber intake : 8-10 g per day and gradually increase to 25-28 g per day for women and 35-38 g for men or as tolerated Recommend sodium intake per day : less than 2000 mg Educated patient on: ( R = reviewed V = verbalizes understanding N/R = needs review N/A = not applicable * Food sources of carbohydrate, adequate serving sizes and its role in various health conditions: R * Differences between complex carbohydrates a simple carbohydrates, role of fiber in diet: R * Differences between types of fats and role in diet (mono on saturated fat fatty acids, saturated fatty acids, trans fats): R * Food sources of sodium in salt and healthy modifications for heart health in kidney health: R * Vitamins and minerals: R * Healthy plate method concept: R * Physical activity: Benefits a precaution: R * Hypoglycemia protocol (rule of 15): NR * Dietary prevention of Hyperglycemia: R Patient Instructions: Reduce on portion of starch following healthy plate method Reduce total carb at dinner 80-90 g Continue reading food labels practice mindful eating strategies Coding Level of Care Code Nutr Indiv Intake (44206) Diagnoses Diabetes mellitus E11.9 Time Spent (min) 30
[2023-02-07 19:47] VITALS: BMI 37.0
== END 2023-02-02 11:04 | disposition home or self-care (01) ==
PROVIDERS: PCP Nurse Practitioner Family; Visit Provider Dietitian, Registered
DX: E11.9 Type 2 diabetes mellitus without complications (principal)

== ENCOUNTER → 2023-02-02 10:10 | Outpatient (BNVA) | payer OTHER, SELFPAY | PROVIDERS: PCP Nurse Practitioner Family; Visit Provider Dietitian, Registered | DX: E11.9 Type 2 diabetes mellitus without complications (principal) | CPT/HCPCS: 97802 ==

== ENCOUNTER 2023-02-10 08:30 | Outpatient (AMB) | payer OTHER, SELFPAY ==
--- NOTE | 2023-02-10 08:34 | A.OFFVIS_ITS ---
Intake Intake Visit Reasons: Balanitis Intake Note: NEW Patient presents today to established treatment for Balanitis: Meds- None Allergies to Antibiotic- No Known Allergies Blood Thinner- None Patient Symptoms: Diarrhea Motor Vehicle License Clerk Required: No Accompanied by: Self / Same As Patient Allergies No Known Allergies Allergy (Verified 01/05/23 10:50) HPI HPI Comments History of Present Illness Details Adeel is a 42-year-old male who presents today to the office to establish as a new patient for an evaluation of balanitis. 02/10/2023? He presents today for an evaluation of balanitis. He was seen in ED on 08/04/2022 for balanitis. Patient was treated for balanitis and he was advised to see urologist for discussion of possible circumcision during that time. He was treated with anti fungal cream during that time. He was recently diagnosed with diabetes and he is currently on metformin. Patient states that his father has a history of colon cancer who is . He states that he developed a yeast infection in foreskin about 2 months ago, and has had repeated infections after treatment. He was given an ointment to apply twice a day by his PCP. He states that he is not sexually active. He states that it is very painful when he tries to retract the foreskin. Patient feels that the ointment is not helping him. I reviewed the lab work from 01/05/2023 which showed HbA1c was 12.1, and fasting glucose from 01/04/2023 was 248. Examination: I am unable to retract the foreskin, skin is thickened and inflamed. Evaluation today?UA?leukocytes: negative; blood: negative; glucose: 3 +. Plan: Ordered Ketoconazole 2 % to apply on the foreskin for 7 days and then PRN. Consent form was obtained for circumcision procedure. Patient has signed the consent form, however, he needs medical clearance due to his new diagnosis of diabetes and abnormal glucose. Circumcision was discussed to be scheduled. [facility] Medical History Encounter to establish care Surgical History History of placement of ear tubes Family History Mother Diabetes Father Colon cancer Maternal Uncle Heart attack Housing: Apartment Alcohol intake: never Patient Tobacco Use Status: Never used Tobacco e-Cigarette/Vaping Use: Never Used Second Hand Smoke Exposure: No service: Yes Current occupational status: employed Current occupational exposures/hazards: No Cognitive needs: No Hearing needs: No Vision needs: No Review of Systems Const All systems reviewed & are unremarkable except as noted in HPI and below Reports no additional complaints Eyes Reports no additional complaints ENT Reports no additional complaints Card Denies dyspnea Resp Denies cough and Denies dyspnea GI Reports no additional complaints Musc Reports no additional complaints Skin/Breast Denies rash and Denies unusual bruising Neuro Reports no additional complaints Psych Reports no additional complaints Endo Reports no additional complaints Joseph/Lymph Reports no additional complaints Aller/Immun Reports no additional complaints Physical Exam Const General: healthy appearing, no acute distress and well developed Nutritional Appearance: overweight Orientation/consciousness: patient oriented x3 HEENT Head: Yes normocephalic and Yes atraumatic Eyes Conjunctivae: conjunctivae normal Neck Neck: Yes normal visual inspection Chest Chest palpation & inspection: normal inspection of the chest Resp Effort & Inspection: normal respiratory effort Cardio Rate: regular rate GI Inspection: Yes normal to inspection Palpation (GI): Soft to palpation and nontender Penis: uncircumcised and non retractile foreskin Scrotum: scrotum normal Skin General skin exam: no rashes or lesions noted Neuro General: patient oriented x3 Extrem General: No pedal edema Psych Appearance: grossly normal Affect: normal affect Results AMB Urinalysis, Automated UA Leukoctes 0 Montrell/uL Last Edit by MARCELINO Bassett on 02/10/23 09:25 UA Nitrite Negative Last Edit by MARCELINO Bassett on 02/10/23 09:25 UA Urobilinogen 0.2 mg/dL Last Edit by Obed Enriquez, RANIA on 02/10/23 09:2 5 UA Protein 15 mg/dL Last Edit by Obed Enriquez A on 02/10/23 09:25 UA pH 6.0 Last Edit by Obed Enriquez, RMA on 02/10/23 09:25 UA Blood 0 Kevin/uL Last Edit by Obed Enriquez, A on 02/10/23 09:25 UA Specific [place] 1.020 Last Edit by Obed Enriquez, RMA on 02/10/23 09: 25 UA Ketone Negative Last Edit by Obed Enriquez, RMA on 02/10/23 09:25 UA Bilirubin 0 mg/dL Last Edit by Obed Enriquez A on 02/10/23 09:25 UA Glucose 1000 mg/dL Last Edit by Obed Enriquez, A on 02/10/23 09:25 3+ Obed Enriquez 02/10/23 09:25 Results Reviewed Results Reviewed: Laboratory Last Values Urine pH (Auto) 6.0 02/10/23 08:38 Specific [place] (Auto) 1.020 02/10/23 08:38 Urine Protein (Auto) 15 mg/dL 02/10/23 08:38 Glucose (UA)(Auto) 1000 mg/dL 02/10/23 08:38 Urine Ketones (Auto) Negative 02/10/23 08:38 Urine Blood (Auto) 0 Kevin/uL 02/10/23 08:38 Urine Nitrite (Auto) Negative 02/10/23 08:38 Urine Bilirubin (Auto) 0 mg/dL 02/10/23 08:38 Urine Urobilinogen (Auto) 0.2 mg/dL 02/10/23 08:38 Leukocyte Esterase (Auto) 0 Montrell/uL 02/10/23 08:38 Assessment & Plan Assessment & Plan (1) Balanitis: Code(s): N48.1 - Balanitis (2) Phimosis of penis: Code(s): N47.1 - Phimosis (3) Diabetes mellitus: Code(s): E11.9 - Type 2 diabetes mellitus without complications Plan Ordered Ketoconazole 2 % to apply on the foreskin for 7 days and then PRN. Consent form was obtained for circumcision procedure. Patient has signed the consent form, however, he needs medical clearance due to his new diagnosis of diabetes and abnormal glucose. Circumcision was discussed to be scheduled. Orders: Orders AMB Urinalysis Automated 02/10/23 Z13.9 - Encounter for screening, unspecified Medications: New ketoconazole 2% apply to foreskin twice daily for 7 days then prn 1 appl topical BID 60 grams 0RF Patient Instructions: The patient had an opportunity to ask questions regarding treatment plan. All questions were answered. Imaging, Laboratory studies and physical exam results were discussed and reviewed in detail. No major barriers to understanding were identified. The patient expressed understanding and agreement with the above treatment plan. The patient is aware they should contact our office by phone for worsening of their current condition or the appearance of new symptoms. Compliance is encouraged with any medications and followup testing that is ordered. It is a privilege to be allowed the opportunity to participate in the urologic care of your patient. If you have any questions or concerns regarding treatment for the above conditions please do not hesitate to contact me. The office telephone contact is [phone]. This note is constructed in part using voice recognition software. While every effort has been made to ensure accuracy steam heating installer errors may have been included. Yours sincerely, Renetta Kim MD Coding Level of Care Code New Pt Level 4 (51633) Diagnoses Balanitis N48.1 Phimosis of penis N47.1 Diabetes mellitus E11.9
== END 2023-02-10 09:31 | disposition home or self-care (01) ==
PROVIDERS: PCP Nurse Practitioner Family; Visit Provider Urology
DX: N48.1 Balanitis (principal); N47.1 Phimosis; E11.9 Type 2 diabetes mellitus without complications
CPT/HCPCS: 99204

== ENCOUNTER → 2023-02-10 08:30 | Outpatient (BNVA) | payer OTHER, SELFPAY | PROVIDERS: PCP Nurse Practitioner Family; Visit Provider Urology | DX: N47.1 Phimosis (principal); N48.1 Balanitis; E11.9 Type 2 diabetes mellitus without complications | CPT/HCPCS: 81003; 99202 ==

== ENCOUNTER 2023-02-17 14:33 | Outpatient (REF) | payer OTHER, SELFPAY | END 2023-02-17 14:34 | disposition home or self-care (01) | LOC: HO.SH 14:33 | PROVIDERS: Visit Provider Nurse Practitioner Family | DX: Z01.118 Encounter for examination of ears and hearing with other abnormal findings (principal); H90.A21 Sensorineural hearing loss, unilateral, right ear, with restricted hearing on the contralateral side; H90.A32 Mixed conductive and sensorineural hearing loss, unilateral, left ear with restricted hearing on the contralateral side | CPT/HCPCS: 92557; 92567 ==

== ENCOUNTER 2023-03-23 12:06 | Outpatient (AMB) | payer OTHER, SELFPAY ==
--- NOTE | 2023-03-23 12:07 | A.OFFPC_ITS ---
Vital Signs 03/23/23 12:09 03/23/23 12:40 Height 6 ft 3 in Weight 296 lb BMI 37.0 BP 138/98 H 122/80 Blood Pressure Location Lt brachial Lt brachial Position Sitting Sitting Pulse 89 Pulse Source Pulse Oximeter Pulse Oximetry (%) 98 Oxygen Delivery Method Room Air Intake Visit Reasons: PreOp Circumcision Intake Note: Patient is here for a Pre-op for [place] [facility] [place]erg[place] No Known Allergies Allergy (Verified 03/23/23 12:18) Medication List - Last Reconciled 03/23/23 by DONNA Whitehead blood sugar diagnostic (FreeStyle Lite Strips) test daily blood-glucose meter (FreeStyle Lite Meter kit) test daily cholecalciferol (vitamin D3) 50 mcg PO DAILY clotrimazole 1% (Antifungal (clotrimazole)) 1 appl topical BID hydrocortisone-acetic acid 1-2 % 4 drps otic (ear) left QID 7 days ketoconazole 2% 1 appl topical BID lancets (FreeStyle Lancets) test daily metformin ER 750 mg PO BID pravastatin 10 mg PO DAILY Tobacco use date assessed: 03/23/23 HPI PreOp Circumcision HPI Details Patient is a 42-year-old male who presents today for preop clearance. Surgery: Circumcision Date: unknown (patient was notified that this preop clearance is only effective for 30 days) Surgeon: Dr. Todd [place] [facility] [place]esthesia: General. Patient denies history of general anesthesia in the past, no surgeries in the past. Patient denies history of blood clotting disorders. Unknown if perioperative hypothermia due to no anaesthesia in the past. He is not on anticoagulation. Medical history significant for autism, anxiety, depression, BONNY-on CPAP, excessive foreskin, diabetes, hyperlipidemia, obesity. Patient denies shortness of breath or chest pain. Patient reports diarrhea every other day since starting metformin. [facility] Medical History Encounter to establish care Surgical History History of placement of ear tubes Family History Mother Diabetes Father Colon cancer Maternal Uncle Heart attack Social History Housing: Apartment Alcohol intake: never Patient Tobacco Use Status: Never used Tobacco e-Cigarette/Vaping Use: Never Used Second Hand Smoke Exposure: No service: Yes Current occupational status: employed Current occupational exposures/hazards: No Cognitive needs: No Hearing needs: No Vision needs: No Questionnaire PHQ-9 Over the last 2 weeks, how often have you been bothered by any of the following problems? 1. Little interest or pleasure in doing things: several days 2. Feeling down, depressed, or hopeless: several days 3. Trouble falling or staying asleep, or sleeping too much: several days 4. Feeling tired or having little energy: more than half the days 5. Poor appetite or overeating: several days 6. Feeling bad about yourself - or that you are a failure or have let yourself or your family down: not at all 7. Trouble concentrating on things, such as reading the newspaper or watching television: more than half the days 8. Moving or speaking so slowly that other people could have noticed. Or the opposite - being so fidgety or restless that you have been moving around a lot more than usual: several days 9. Thoughts that you would be better off or of hurting yourself in some way: not at all Total score: 9 Depression Screening Interpretation: Negative Depression Screening Done: Yes 09412 - PHQ-9 Billing: Yes Source: Developed by Drs. Faustino Glez, Selma Brown, Thomas Null and colleagues, with an educational maricruz from [employer]. Thrive Questionnaire Date Thrive assessed: 11/03/22 AUDIT C Alcohol Use Questionnaire (AUDIT-C) 1. How often do you have a drink containing alcohol?: Never Total Score: 0 Score Reviewed/Action Taken: No ABBEY-7 AMB Questionnaire ABBEY-7 Date ABBEY - 7 assessed: 01/05/23 Feeling nervous, anxious, or on edge: 1 = Several days Not being able to stop or control worryin = Several days Worrying too much about different things: 1 = Several days Trouble relaxin = Several days Being so restless that it is hard to sit still: 1 = Several days Becoming easily annoyed or irritable: 1 = Several days Feeling afraid as if something awful might happen: 2 = More than half the days Total ABBEY-7 score (0-4 normal; 5-9 mild; 10-14 moderate; 15-21 severe): 8 Source: Developed by Drs. Faustino Glez, Selma Brown, Thomas Null and colleagues, with an educational maricruz from [employer]. ABBEY-7 Assessment Billing ABBEY-7 Assessment Tool: ABBEY-7 Assessment 53484 Review of Systems Const Denies body aches, Denies chills, Denies fever(s) and Denies headache(s) Eyes Denies change in vision ENT Denies dizziness, Denies otalgia, Denies headache(s), Denies nasal discharge, Denies sinus pain and Denies sore throat Card Denies chest pain, Denies edema, Denies lightheadedness and Denies dyspnea Resp Denies cough and Denies dyspnea GI Denies constipation, Denies diarrhea, Denies nausea and Denies vomiting Reports as per HPI and Denies dysuria Musc Denies myalgias Skin/Breast Denies rash Neuro Denies dizziness and Denies headache(s) Physical exam (Primary Care) Vital Signs: Last Vital Signs Pulse 89 03/23/23 12:09 BP 138/98 H 03/23/23 12:09 Pulse Ox 98 03/23/23 12:09 Oxygen Delivery Method Room Air 03/23/23 12:09 BMI result Body Mass Index 37.0 Tobacco/Smoking Status: Tobacco use Status Tobacco use date assessed 03/23/23 03/23/23 12:15 Patient Tobacco Use Status Never used Tobacco 03/23/23 12:09 e-Cigarette/Vaping Use Never Used 03/23/23 12:09 PHQ-9: PHQ-9 Score PHQ-9: Total score 9 03/23/23 12:15 Depression Screening Interpretation: Negative Thrive Assessment: Date of Thrive Assessment Date Thrive assessed 11/03/22 03/23/23 12:09 Const General: cooperative and no acute distress Orientation/consciousness: patient oriented x3 HENMT Head: Yes normocephalic and Yes atraumatic Face and sinus: Yes sinuses nontender Mouth: oropharynx normal and moist mucous membranes Throat: Yes posterior oropharynx normal Eyes General: appearance normal, both eyes and all related structures Pupils: Equal, round and reactive pupils present EOM: EOMs intact bilaterally Neck Neck: Yes normal visual inspection, Yes full ROM and Yes no lymphadenopathy Thyroid: Thyroid normal Resp Effort & Inspection: normal respiratory effort and able to speak in complete sentences Auscultation: clear to auscultation bilaterally, no crackles, no rales, no rhonchi and no wheezes Cardio Rate: regular rate Rhythm: regular rhythm Heart sounds: S1 normal heart sound present, S2 normal heart sound present and no murmurs GI Palpation (GI): Soft to palpation, not firm, nontender, no guarding, not rigid and no hepatosplenomegaly Auscultation: normal bowel sounds General: No CVA tenderness Back/Spine/Pelvis Back: No CVA tenderness Skin General skin exam: no rashes or lesions noted Neuro General: patient oriented x3 Cranial nerves: Yes Equal, round and reactive pupils present Gait exam (Neuro): Normal gait present Extrem General: Yes full ROM and No edema Results AMB Hemoglobin A1c AMB Hemoglobin A1c 13.0 % Last Edit by MARCELINO Olea on 03/23/23 12:18 Assessment and Plan Assessment & Plan (1) Preoperative clearance: Code(s): Z01.818 - Encounter for other preprocedural examination Plan: Patient is not cleared for circumcision surgery due to very high A1c 13.0, goal A1c less than 8 for surgery Patient agreed with the plan (2) Diabetes mellitus: Code(s): E11.9 - Type 2 diabetes mellitus without complications Plan: A1c 13.0 today, goal less than 7 Stop metformin due to diarrhea Start Januvia and Trulicity -possible adverse reactions reviewed with the patient and when to notify provider, patient declined starting insulin Reinforced low-carbohydrate diet Endocrinology referral Continue to follow-up with dietitian Continue to monitor blood sugars at home (reports blood sugars at home between 160 and 180) Follow-up in 3 months (3) Excessive foreskin: Code(s): N47.8 - Other disorders of prepuce Plan: Same as above Orders: Orders AMB Hemoglobin A1c Today E11.9 - Type 2 diabetes mellitus without complications Comprehensive Met. Panel Today Z01.818 - Encounter for other preprocedural examination Prothrombin Time INR Today Z01.818 - Encounter for other preprocedural examination Complete Blood Count no Diff Today Z01.818 - Encounter for other preprocedural examination TSH reflex Free T4 Today Z01.818 - Encounter for other preprocedural examination ECG 12 lead EKG Today Z01.818 - Encounter for other preprocedural examination Referrals Endocrinology Referral E11.9 - Type 2 diabetes mellitus without complications Medications: New dulaglutide (Trulicity) 0.75 mg (0.5 mL) subcut QWEEK 2 mL 1RF E11.9 - Type 2 diabetes mellitus without complications sitagliptin phosphate (Januvia) 50 mg PO DAILY 30 tabs 2RF E11.9 - Type 2 diabetes mellitus without complications Discontinued metformin ER Discontinued Reason: Doctor's Order 750 mg PO BID 60 tabs 2RF E11.9 - Type 2 diabetes mellitus without complications Coding Level of Care Code Est Pt Level 3 (00828) Diagnoses Preoperative clearance Z01.818 Diabetes mellitus E11.9 Excessive foreskin N47.8 Additional Codes ABBEY-7 Assessment Billing - ABBEY-7 Assessment Tool: ABBEY-7 Assessment 96252 ([id number])
[2023-03-23 12:09] VITALS: BP 138/98; PULSE 89; O2SAT 98; BMI 37.0
[2023-03-23 12:40] VITALS: BP 122/80
== END 2023-03-23 12:52 | disposition home or self-care (01) ==
PROVIDERS: PCP Nurse Practitioner Family; Visit Provider Nurse Practitioner Family
DX: Z01.818 Encounter for other preprocedural examination (principal); E11.9 Type 2 diabetes mellitus without complications; N47.8 Other disorders of prepuce
CPT/HCPCS: 83036; 99213

== ENCOUNTER 2023-06-22 10:47 | Outpatient (AMB) | payer OTHER, SELFPAY ==
--- NOTE | 2023-06-22 10:48 | A.OFFPC_ITS ---
Vital Signs 06/22/23 10:49 Height 6 ft 3 in Weight 298 lb BMI 37.2 BP 132/80 Blood Pressure Location Lt brachial Position Sitting Intake Visit Reasons: f/u on DM Intake Note: Patient here for a follow up DM Car Trimmer Required: No Accompanied by: Self / Same As Patient Allergies No Known Allergies Allergy (Verified 06/22/23 11:04) Medication List - Last Reconciled 06/22/23 by Effie Camp MD blood sugar diagnostic (FreeStyle Lite Strips) test daily blood-glucose meter (FreeStyle Lite Meter kit) test daily dulaglutide (Trulicity) 0.75 mg (0.5 mL) subcut QWEEK lancets (FreeStyle Lancets) test daily Tobacco use date assessed: 06/22/23 Dental Screening Dental Screen Date: 06/22/23 Did you have a dental visit in the last 12 months?: No Did you have a dental problem in the last 6 months where you did not have access to dental care?: No Was dental information given to patient?: Patient has dentist HPI HPI Comments History of Present Illness Details This is a 42-year-old male with diabetes mellitus type 2, obstructive sleep apnea on CPAP, mild major depression and severe obesity with a BMI of 37.2 that comes today for follow-up on his conditions. A1c has improved but still elevated and I will increase Trulicity. Compliant with his CPAP machine and feels markedly improved. Has mild major depression and follows with counseling once a week but depression still present. I will start him on bupropion and side effects were discussed. He is severely obese and was advised to diet and exercise. 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 Aware that does apply for weight loss surgery but I will increase Trulicity to see if he keep losing weight. Labs were discussed and his last LDL was not on goal and I will start him on statins at bedtime. Denies any chest pain or shortness of breath. [facility] Surgical History History of placement of ear tubes Family History Mother Diabetes Father Colon cancer Maternal Uncle Heart attack Social History Housing: Apartment Alcohol intake: never Patient Tobacco Use Status: Never used Tobacco e-Cigarette/Vaping Use: Never Used Second Hand Smoke Exposure: No service: Yes Current occupational status: employed Current occupational exposures/hazards: No Cognitive needs: No Hearing needs: No Vision needs: No Questionnaire PHQ-9 Over the last 2 weeks, how often have you been bothered by any of the following problems? 1. Little interest or pleasure in doing things: several days 2. Feeling down, depressed, or hopeless: more than half the days 3. Trouble falling or staying asleep, or sleeping too much: more than half the days 4. Feeling tired or having little energy: more than half the days 5. Poor appetite or overeating: several days 6. Feeling bad about yourself - or that you are a failure or have let yourself or your family down: not at all 7. Trouble concentrating on things, such as reading the newspaper or watching television: more than half the days 8. Moving or speaking so slowly that other people could have noticed. Or the opposite - being so fidgety or restless that you have been moving around a lot more than usual: more than half the days 9. Thoughts that you would be better off or of hurting yourself in some way: not at all Total score: 12 Depression Screening Interpretation: Positive Depression Screening Follow-up: Existing condition, New Medication prescribed and Community Mental Health Worker F/U Depression Screening Done: Yes 07257 - PHQ-9 Billing: Yes Source: Developed by Drs. Faustino Glez, Selma Brown, Thomas uNll and colleagues, with an educational maricruz from [employer]. Thrive Questionnaire Date Thrive assessed: 06/22/23 I am a: Patient What is your living situation today?: I have a steady place to live Within the past 12 months, did the food you bought not last and you didn't have the money to get more?: Never true Within the past 12 months, did you worry whether your food would run out before you got money to buy more?: Never true Do you have trouble paying for medicines?: No Do you have trouble getting transportation to medical appointments?: No Do you have trouble paying your heating and electricity bill?: No Do you have trouble taking care of your child, family member or friend?: No Do you have trouble with day-to-day activities such as bathing, preparing meals, shopping, managing finances, etc.?: No Are you currently unemployed and looking for a job?: No Are you interested in more education?: No Please select the resources that you would like help with: None Currently or been in a relationship where the following occur: no concerns reported THRIVE Score: 0 AUDIT C Alcohol Use Questionnaire (AUDIT-C) 1. How often do you have a drink containing alcohol?: Never Total Score: 0 ABBEY-7 AMB Questionnaire ABBEY-7 Date ABBEY - 7 assessed: 06/22/23 Feeling nervous, anxious, or on edge: 2 = More than half the days Not being able to stop or control worryin = Several days Worrying too much about different things: 1 = Several days Trouble relaxin = Not at all Being so restless that it is hard to sit still: 1 = Several days Becoming easily annoyed or irritable: 1 = Several days Feeling afraid as if something awful might happen: 2 = More than half the days Total ABBEY-7 score (0-4 normal; 5-9 mild; 10-14 moderate; 15-21 severe): 8 Source: Developed by Drs. Faustino Glez, Selma Brown, Thomas Null and colleagues, with an educational maricruz from [employer]. ABBEY-7 Assessment Billing ABBEY-7 Assessment Tool: ABBEY-7 Assessment 21048 Review of Systems Const All systems reviewed & are unremarkable except as noted in HPI and below Eyes Reports no additional complaints, Denies change in vision and Denies other visual disturbances Card Denies chest pain at rest, Denies chest pain with activity, Denies edema, Denies irregular heart rhythm, Denies claudication, Denies dyspnea, Denies dyspnea on exertion, Denies orthopnea, Denies paroxysmal nocturnal dyspnea and Denies slow heart rate Resp Denies cough, Denies dyspnea and Denies dyspnea on exertion GI Denies abdominal pain, Denies change in bowel habits, Denies excessive flatus, Denies nausea and Denies vomiting Denies urinary hesitancy, Denies urinary incontinence and Denies urinary urgency Musc Denies abnormal gait, Denies atrophy, Denies deformity and Denies limited range of motion Skin/Breast Denies bleeding lesions, Denies changing lesions and Denies rash Neuro Denies abnormal gait, Denies behavioral changes and Denies lack of coordination Psych Denies behavioral changes Physical exam (Primary Care) Vital Signs: Last Vital Signs BP 132/80 06/22/23 10:49 BMI result Body Mass Index 37.2 Tobacco/Smoking Status: Tobacco use Status Tobacco use date assessed 06/22/23 06/22/23 10:58 Patient Tobacco Use Status Never used Tobacco 06/22/23 10:58 e-Cigarette/Vaping Use Never Used 06/22/23 10:58 PHQ-9: PHQ-9 Score PHQ-9: Total score 12 06/22/23 11:12 Depression Screening Interpretation: Positive Depression Screening Follow-up: Existing condition, New Medication prescribed and Community Mental Health Worker F/U Thrive Assessment: Date of Thrive Assessment Date Thrive assessed 06/22/23 06/22/23 11:00 Currently or been in a relationship where the following occur: no concerns reported Eyes General: appearance normal, both eyes and all related structures Eyelids: Yes eyelids normal Conjunctivae: conjunctivae normal Neck Neck: Yes normal visual inspection and Yes supple Resp Effort & Inspection: normal respiratory effort Auscultation: clear to auscultation bilaterally Cardio Jugular venous distension: no JVD Rate: regular rate Rhythm: regular rhythm Heart sounds: S1 normal heart sound present and S2 normal heart sound present Extrem General: Yes full ROM Results AMB Hemoglobin A1c AMB Hemoglobin A1c 10.5 % Last Edit by MARCELINO Hanson on 06/22/23 10: 59 Results Reviewed Results Reviewed: Laboratory Last Values Hgb A1c (Clinic) 10.5 % (4.0-6.0) H 06/22/23 10:59 Assessment and Plan Assessment & Plan (1) Diabetes mellitus: Code(s): E11.9 - Type 2 diabetes mellitus without complications Plan: Increase Trulicity. A1c goal is equal or less than 7%. (2) Hyperlipidemia LDL goal <70: Code(s): E78.5 - Hyperlipidemia, unspecified Plan: Start statins. LDL goal is less than 70. (3) Mild major depression: Code(s): F32.0 - Major depressive disorder, single episode, mild Plan: Start bupropion. Continue counseling once a week. (4) Severe obesity (BMI 35.0-39.9) with comorbidity: Code(s): E66.01 - Morbid (severe) obesity due to excess calories Plan: Advised to do diet and exercise to reach BMI goal less than 30. (5) BONNY (obstructive sleep apnea): Comment: on CPAP Code(s): G47.33 - Obstructive sleep apnea (adult) (pediatric) Plan: Continue CPAP use. Orders: Orders Comprehensive [place]. Panel Fast 4 Months E78.5 - Hyperlipidemia, unspecified AMB Hemoglobin A1c Today E11.9 - Type 2 diabetes mellitus without complications Lipid Panel 4 Months E78.5 - Hyperlipidemia, unspecified Microalbumin, Random (w Creat) 4 Months E11.9 - Type 2 diabetes mellitus without complications Vitamin D 25-OH Total 4 Months E55.9 - Vitamin D deficiency, unspecified Medications: New bupropion HCl 150 mg PO QAM 90 days 90 tabs 1RF F32.0 - Major depressive disorder, single episode, mild dulaglutide (Trulicity) 1.5 mg (0.5 mL) subcut QWEEK 90 days 6.5 mL 1RF E11.9 - Type 2 diabetes mellitus without complications atorvastatin 20 mg PO BEDTIME 90 days 90 tabs 1RF E78.5 - Hyperlipidemia, unspecified Discontinued dulaglutide (Trulicity) Discontinued Reason: No Longer Medically Relevant 0.75 mg (0.5 mL) subcut QWEEK 2 mL 1RF E11.9 - Type 2 diabetes mellitus without complications Coding Level of Care Code Est Pt Level 4 (34328) Diagnoses Diabetes mellitus E11.9 Hyperlipidemia LDL goal <70 E78.5 Mild major depression F32.0 Severe obesity (BMI 35.0-39.9) with comorbidity E66.01 BONNY (obstructive sleep apnea) G47.33 Additional Codes ABBEY-7 Assessment Billing - ABBEY-7 Assessment Tool: ABBEY-7 Assessment 64207 ([id number]) Time Spent (min) 25
[2023-06-22 10:49] VITALS: BP 132/80; BMI 37.2
== END 2023-06-22 11:20 | disposition home or self-care (01) ==
PROVIDERS: PCP Nurse Practitioner Family; Visit Provider Internal Medicine
DX: E11.9 Type 2 diabetes mellitus without complications (principal); F32.0 Major depressive disorder, single episode, mild; E66.01 Morbid (severe) obesity due to excess calories; Z68.37 Body mass index [BMI] 37.0-37.9, adult; E78.5 Hyperlipidemia, unspecified; G47.33 Obstructive sleep apnea (adult) (pediatric)
CPT/HCPCS: 83036; 96127; 99214

== ENCOUNTER 2023-09-09 11:54 | Emergency (ER) | payer OTHER, SELFPAY ==
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
[2023-09-09 12:05] VITALS: BP 128/83; PULSE 92; RESP 16; TEMP 36.4; O2SAT 96; BMI 39.3
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
[2023-09-09 14:54] VITALS: BP 126/84; PULSE 87; RESP 18; TEMP 35.9; O2SAT 96
[2023-09-09 14:55] VITALS: BP 126/84; PULSE 87; RESP 18; TEMP 35.9; O2SAT 96
== END 2023-09-09 15:01 | disposition home or self-care (01) ==
LOC: HO.ED 14:55
PROVIDERS: Emergency Provider Emergency Medicine Emergency Medical Services
DX: M62.830 Muscle spasm of back (principal); S39.92XA Unspecified injury of lower back, initial encounter; V43.52XA Car driver injured in collision with other type car in traffic accident, initial encounter; Y93.9 Activity, unspecified; Y92.9 Unspecified place or not applicable; Y99.9 Unspecified external cause status; M54.50 Low back pain, unspecified
CPT/HCPCS: 72100; 99282; 99283

== ENCOUNTER 2023-12-09 09:55 | Outpatient (AMB) | payer OTHER, SELFPAY ==
--- NOTE | 2023-12-09 10:00 | A.OFFVIS_ITS ---
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 He states that his H A1c is coming down. He used the antifungal cream which has helped. In review of labs he had H A1c in 08/06/2023 which was 10.5. I will repeat fasting glucose and repeat H A1c and schedule circumcision. Review of chart: 02/10/2023? He presents today for an evaluation of balanitis. He was seen in ED on 08/04/2022 for balanitis. Patient was treated for balanitis and he was advised to see urologist for discussion of possible circumcision during that time. He was treated with anti fungal cream during that time. He was recently diagnosed with diabetes and he is currently on metformin. Patient states that his father has a history of colon cancer who is . He states that he developed a yeast infection in foreskin about 2 months ago, and has had repeated infections after treatment. He was given an ointment to apply twice a day by his PCP. He states that he is not sexually active. He states that it is very painful when he tries to retract the foreskin. Patient feels that the ointment is not helping him. I reviewed the lab work from 01/05/2023 which showed HbA1c was 12.1, and fasting glucose from 01/04/2023 was 248. Examination: I am unable to retract the foreskin, skin is thickened and inflamed. Evaluation today?UA?leukocytes: negative; blood: negative; glucose: 3 +. Plan: Ordered Ketoconazole 2 % to apply on the foreskin for 7 days and then PRN. Consent form was obtained for circumcision procedure. Patient has signed the consent form, however, he needs medical clearance due to his new diagnosis of diabetes and abnormal glucose. Circumcision was discussed to be scheduled. [facility] Surgical History History of placement of ear tubes Family History Mother Diabetes Father Colon cancer Maternal Uncle Heart attack Social History Housing: Apartment Alcohol intake: never Patient Tobacco Use Status: Never used Tobacco e-Cigarette/Vaping Use: Never Used Second Hand Smoke Exposure: No service: Yes Current occupational status: employed Current occupational exposures/hazards: No Cognitive needs: No Hearing needs: No Vision needs: No Review of Systems Const All systems reviewed & are unremarkable except as noted in HPI and below Reports no additional complaints Eyes Reports no additional complaints ENT Reports no additional complaints Card Reports no additional complaints Resp Reports no additional complaints GI Reports no additional complaints Reports as per HPI Musc Reports no additional complaints Skin/Breast Reports system reviewed and no additional complaints, except as documented Neuro Reports no additional complaints Psych Reports no additional complaints Endo Reports no additional complaints Joseph/Lymph Reports no additional complaints Aller/Immun Reports no additional complaints Results AMB Urinalysis, Automated UA Leukoctes 0 Montrell/uL Last Edit by JAX Gibbs on 12/09/23 10:14 UA Nitrite Negative Last Edit by Froilan Block CCM on 12/09/23 10:14 UA Urobilinogen 0.2 mg/dL Last Edit by JAX Gibbs on 12/09/23 10:1 4 UA Protein 30 mg/dL Last Edit by Froilan lBock CCM on 12/09/23 10:14 UA pH 6.0 Last Edit by Froilan Block CCM on 12/09/23 10:14 UA Blood 0 Kevin/uL Last Edit by JAX Gibbs on 12/09/23 10:14 UA Specific [place] 1.020 Last Edit by JAX Gibbs on 12/09/23 10: 14 UA Ketone Negative Last Edit by JAX Gibbs on 12/09/23 10:14 UA Bilirubin 0 mg/dL Last Edit by Froilan Block CCM on 12/09/23 10:14 UA Glucose 1000 mg/dL Last Edit by Froilan Block CCM on 12/09/23 10:14 Results Reviewed Results Reviewed: Laboratory Last Values Urine pH (Auto) 6.0 12/09/23 10:13 Specific [place] (Auto) 1.020 12/09/23 10:13 Urine Protein (Auto) 30 mg/dL 12/09/23 10:13 Glucose (UA)(Auto) 1000 mg/dL 12/09/23 10:13 Urine Ketones (Auto) Negative 12/09/23 10:13 Urine Blood (Auto) 0 Kevin/uL 12/09/23 10:13 Urine Nitrite (Auto) Negative 12/09/23 10:13 Urine Bilirubin (Auto) 0 mg/dL 12/09/23 10:13 Urine Urobilinogen (Auto) 0.2 mg/dL 12/09/23 10:13 Leukocyte Esterase (Auto) 0 Montrell/uL 12/09/23 10:13 Assessment & Plan Assessment & Plan (1) Diabetes mellitus: Code(s): E11.9 - Type 2 diabetes mellitus without complications Category: Medical (2) Phimosis of penis: Code(s): N47.1 - Phimosis Category: Medical Plan Repeat labs, H A1c and fasting glucose Schedule circumcision Orders: Orders AMB Urinalysis Automated Today Z13.9 - Encounter for screening, unspecified Glucose Fasting Today E11.9 - Type 2 diabetes mellitus without complications, N47.1 - Phimosis Hemoglobin A1c Today E11.9 - Type 2 diabetes mellitus without complications, N47.1 - Phimosis Patient Instructions: The patient had an opportunity to ask questions regarding treatment plan. The patient expressed understanding and agreement with the above treatment plan. The patient is aware they should contact our office by phone for worsening of their current condition or the appearance of new symptoms. Compliance is encouraged with any medications and followup testing that is ordered. It is a privilege to be allowed the opportunity to participate in the urologic care of your patient. If you have any questions or concerns regarding treatment for the above conditions please do not hesitate to contact me. The office telephone contact is [phone]. This note is constructed in part using voice recognition software. While every effort has been made to ensure accuracy call circuit worker errors may have been included. Yours sincerely, Renetta Kim MD Coding Level of Care Code Est Pt Level 3 (47019) Diagnoses Diabetes mellitus E11.9 Phimosis of penis N47.1
== END 2023-12-09 10:26 | disposition home or self-care (01) ==
PROVIDERS: PCP Nurse Practitioner Family; Visit Provider Urology
DX: E11.9 Type 2 diabetes mellitus without complications (principal); N47.1 Phimosis; Z13.9 Encounter for screening, unspecified
CPT/HCPCS: 99213

== ENCOUNTER → 2023-12-09 09:55 | Outpatient (BNVA) | payer OTHER, SELFPAY | PROVIDERS: PCP Nurse Practitioner Family; Visit Provider Urology | DX: N48.1 Balanitis (principal); N47.1 Phimosis; E11.9 Type 2 diabetes mellitus without complications | CPT/HCPCS: 81003; 99212 ==